=== PATIENT | female | born 2000 | race Caucasian/White ===

== ENCOUNTER → 2020-10-19 12:20 | Observation (INO) ==
[2020-10-19 12:01] LABS: Bacteria,Urine Few per hpf (None-Few); Bilirubin,Urine Negative (Negative); Blood,Urine Negative (Negative); Clarity,Urine Turbid (Clear); Color,Urine Yellow (Yellow); Glucose,Urine (UA) Normal (Normal); Ketones,Urine Negative (Negative); Leukocyte Esterase,Urine Moderate (Negative); Mucus,Urine Moderate per lpf (None-Few); Nitrite,Urine Negative (Negative); Protein,Urine Trace mg/dL (Neg-Trace); RBC,Urine 0-3 per hpf (0-3); Specific Gravity,Urine 1.022 (1.010-1.025); Squamous Epithelial Cell,Urine Moderate per hpf (None-Few)
== END | disposition home or self-care (01) ==
LOC: 1NENULAB
PROVIDERS: ADMIT Advanced Practice Midwife; ATTEND Advanced Practice Midwife

== ENCOUNTER → 2020-10-24 16:25 | Observation (INO) ==
[2020-10-24 16:07] LABS: Candida DNA Not Detected (Not Detect); Gardnerella DNA DETECTED (Not Detect); Trichomonas DNA Not Detected (Not Detect)
== END | disposition home or self-care (01) ==
LOC: 1NENULAB
PROVIDERS: ADMIT Advanced Practice Midwife; ATTEND Advanced Practice Midwife

== ENCOUNTER 2020-11-08 06:00 | Inpatient (IN) ==
[2020-11-08] MEDS ORDERED: Famotidine 20 MG/2 ML VIAL IVP PRN (06:30)
[2020-11-08] MEDS ORDERED: Metoclopramide 10 MG/2 ML VIAL IVP PRN (06:30)
[2020-11-08] MEDS ORDERED: miSOPROStoL 25 MCG TABLET PO PRN (06:30)
[2020-11-08] MEDS ORDERED: *HR* Nalbuphine 10 MG/ML AMPUL IV PRN (06:30)
[2020-11-08] MEDS ORDERED: Naloxone 0.4 MG/ML INJ IVP PRN (06:30)
[2020-11-08] MEDS ORDERED: Ondansetron 4 MG/2 ML VIAL IVP PRN (06:30)
[2020-11-08] MEDS ORDERED: Azithromycin 500 MG in 0.9 % Sodium Chloride 250 ML IVPB ONE (06:30)
[2020-11-08 07:10] LABS: Basophils % 0.3 %; Eosinophils % 0.6 %; Hematocrit 34.9 % (35.3-44.9); Hemoglobin 11.9 g/dL (11.5-15.4); Immature Platelets 2.2 % (1.1-6.1); Lymphocytes # 1.2 K/mcL (0.6-4.6); Mean Corpuscular HGB Conc 34.1 g/dL (31.6-35.5); Mean Corpuscular Hemoglobin 32.9 pg (28.0-33.3); Mean Corpuscular Volume 96.4 fL (83.0-100.0); Mean Platelet Volume 9.3 fL (9.4-12.4); Monocytes # 0.6 K/mcL (0.0-1.3); Monocytes % 8.4 %; Neutrophils # 5.1 K/mcL (1.6-8.9); Platelet Count 126 K/mcL (140-400); Red Blood Count 3.62 M/mcL (3.82-4.97); Red Cell Distribution Width 13.4 % (11.5-14.5); Segmented Neutrophils % 72.7 %; White Blood Count 7.1 K/mcL (4.3-11.1)
[2020-11-08] MEDS: Ringers Solution, Lactated 1,000 ML IVC SCH ×2 (08:01→14:55)
[2020-11-08 08:09] LABS: Adenovirus Not Detected (Not Detect); Bordetella Pertussis Not Detected (Not Detect); Chlamydophila pneumoniae Not Detected (Not Detect); Coronavirus 229E Not Detected (Not Detect); Coronavirus HKU1 Not Detected (Not Detect); Coronavirus NL63 Not Detected (Not Detect); Coronavirus OC43 Not Detected (Not Detect); Human Metapneumovirus Not Detected (Not Detect); Human Rhinovirus/Enterovirus Not Detected (Not Detect); Influenza A Subtype 2009 H1 Not Detected (Not Detect); Influenza B Not Detected (Not Detect); Mycoplasma pneumoniae Not Detected (Not Detect); Parainfluenza Virus 1 Not Detected (Not Detect); Parainfluenza Virus 2 Not Detected (Not Detect); Parainfluenza Virus 3 Not Detected (Not Detect); Parainfluenza Virus 4 Not Detected (Not Detect); Respiratory Syncytial Virus Not Detected (Not Detect); SARS-CoV-2 Not Detected (Not Detect)
[2020-11-08] MEDS ORDERED: EPHEDrine 50 MG/ML VIAL IVP PRN (08:40)
[2020-11-08] MEDS ORDERED: Epidural Premix (fent/bupiv) 110 ML EP SCH (08:45)
[2020-11-08 11:22] LABS: Amphetamine Screen,Urine Negative ng/mL (Cutoff=1000); Barbiturate Screen,Urine Negative ng/mL (Cutoff=200); Benzodiazepines Screen,Urine Negative ng/mL (Cutoff=200); Cannabinoid Screen,Urine Negative ng/mL (Cutoff = 50); Cocaine Screen,Urine Negative ng/mL (Cutoff= 300); Opiate Screen,Urine Negative ng/mL (Cutoff=300); Phencyclidine Screen,Urine Negative ng/mL (Cutoff=25)
[2020-11-08] MEDS ORDERED: Oxytocin 20 units/ LR 1000 mL 20 UNIT/1,000 ML BAG IVC SCH (15:00)
[2020-11-08] MEDS ORDERED: *HR* FentaNYL (PF) 100 MCG/2 ML VIAL ONE (23:24)
[2020-11-08] MEDS ORDERED: Ropivacaine/PF 0.2% 20 ML VIAL ONE (23:24)
[2020-11-09] MEDS ORDERED: Oxytocin 20 units/ LR 1000 mL 20 UNIT/1,000 ML BAG IVC ONE (06:22)
[2020-11-09] MEDS ORDERED: Lanolin 7 G OINT...G. TP PRN (06:22)
[2020-11-09] MEDS ORDERED: Oxytocin 20 units/ LR 1000 mL 20 UNIT/1,000 ML BAG IVC SCH (06:22)
[2020-11-09] MEDS ORDERED: Measles/Mumps/Rubella Vacc 0.5 ML VIAL SQ PRN (06:22)
[2020-11-09] MEDS ORDERED: Benzocaine/Menthol 56 GM AEROSOL SPRAY TP PRN (06:22)
[2020-11-09] MEDS ORDERED: Rho Immune Globulin 1,500 UNIT SYRINGE IM PRN (06:22)
[2020-11-09] MEDS: Ibuprofen 600 MG TABLET PO PRN ×2 (06:36→17:14)
[2020-11-09] MEDS: Acetaminophen 325 MG TABLET PO PRN ×2 (08:59→20:49)
[2020-11-09] MEDS: Prenatal Vit/FA 1 EACH TABLET PO SCH (08:59)
[2020-11-09] MEDS ORDERED: NON-FORMULARY MEDICATION 1 EACH EACH (Prenatal Vitamin Tablet 1 TAB) PO SCH (09:00)
[2020-11-09] MEDS ORDERED: Methylergonovine 0.2 MG/ML AMPUL IM ONE (15:41)
[2020-11-10] MEDS: Ibuprofen 600 MG TABLET PO PRN (04:58)
[2020-11-10 05:42] LABS: Basophils % 0.3 %; Eosinophils # 0.1 K/mcL (0.0-0.6); Eosinophils % 0.9 %; Hematocrit 25.9 % (35.3-44.9); Immature Granulocytes % 0.8 % (0-4); Lymphocytes # 1.6 K/mcL (0.6-4.6); Lymphocytes % 20.5 %; Mean Corpuscular HGB Conc 33.2 g/dL (31.6-35.5); Mean Corpuscular Hemoglobin 32.5 pg (28.0-33.3); Mean Corpuscular Volume 97.7 fL (83.0-100.0); Mean Platelet Volume 9.6 fL (9.4-12.4); Monocytes # 0.7 K/mcL (0.0-1.3); Monocytes % 8.5 %; Neutrophils # 5.4 K/mcL (1.6-8.9); Platelet Count 100 K/mcL (140-400); Red Blood Count 2.65 M/mcL (3.82-4.97); Red Cell Distribution Width 13.7 % (11.5-14.5); White Blood Count 7.8 K/mcL (4.3-11.1)
[2020-11-10 05:43] LABS: Hemoglobin 8.6 g/dL (11.5-15.4)
[2020-11-10 08:02] VITALS: BP 114/67
[2020-11-10] MEDS: Prenatal Vit/FA 1 EACH TABLET PO SCH (08:05)
[2020-11-10] MEDS: Acetaminophen 325 MG TABLET PO PRN (08:06)
== END 2020-11-10 12:28 | disposition home or self-care (01) | DRG 542 ==
LOC: 1NENULAB 06:12 → 1NENUOBS 11-09 08:08
PROVIDERS: ADMIT Student in an Organized Health Care Education/Training Program; ATTEND Student in an Organized Health Care Education/Training Program